=== PATIENT | female | born 1990 | race Caucasian/White ===

== ENCOUNTER 2017-05-25 12:01 | Emergency (ER) | payer BC ==
[2017-05-25 12:08] VITALS: TEMP 98.2
[2017-05-25] MEDS ORDERED: DIAZEPAM 10 MG/2 ML SYR IVP ONE ×2 (12:43→14:57)
[2017-05-25] MEDS ORDERED: ONDANSETRON 4 MG/2 ML VIAL IVP ONE ×3 (13:03→14:57)
[2017-05-25 13:09] LABS: % IMMATURE GRANULYOCYTES 0.4 % (0.0-1.1); ABSOLUTE IMMATURE GRANULOCYTES 0.04 10^3/uL (0.00-0.10); ADD DIFF? NO; ADD MORPH? NO; ADD SCAN? NO; ATYPICAL LYMPHOCYTE FLAG 10 (0-99); FRAGMENT RBC FLAG 0 (0-99); HEMOGLOBIN 16.3 g/dL (12.6-16.3); LEFT SHIFT FLG 0 (0-99); LIPEMIA HEMOLYSIS FLAG 90 (0-99); MEAN CELL HEMOGLOBIN 31.7 pg (27.9-34.1); MEAN CELL HEMOGLOBIN CONCENTR. 35.4 g/dL (32.4-36.7); MEAN CELL VOLUME 89.3 fL (81.5-99.8); MEAN PLATELET VOLUME 9.6 fL (8.7-11.7); PLATELET CLUMPS FLAG 0 (0-99); PLATELET COUNT 232 10^3/uL (150-400); RED BLOOD CELL COUNT 5.15 10^6/uL (4.18-5.33); RED CELL DISTRIBUTION WIDTH 12.4 % (11.5-15.2)
[2017-05-25 13:51] LABS: ANION GAP 12 mEq/L (8-16); CALCIUM 10.1 mg/dL (8.5-10.4); CARBON DIOXIDE 23 mEq/l (22-31); CHLORIDE 104 mEq/L (97-110); CREATININE 0.8 mg/dL (0.6-1.0); GLOMERULAR FILTRATION RATE > 60; GLUCOSE 94 mg/dL (70-100); SODIUM 139 mEq/L (134-144)
[2017-05-25] MEDS ORDERED: DOXYCYCLINE HYCLATE 100 MG CAP/TAB PO ONE (14:22)
[2017-05-25] MEDS ORDERED: metroNIDAZOLE 500 MG TAB PO ONE (14:22)
--- NOTE | 2017-05-25 14:47 | EDPHY ---
H & P Stated Complaint: Sent by [facility] for increased pelvic pain. Time Seen by Provider: 05/25/17 12:26 HPI/ROS: Chief Complaint: Pelvic Pain History of Present Illness: This is a 27 year old female sent from [facility] for increasing pelvic pain. Patient has had pain for the last few days. She went to [facility] today. I did talk with the ROCKET SCIENTIST, Nubia, on the phone who sent her to the ED. At the office she had a pelvic exam. They were unable to located her IUD strings. She had significant cervical motion tenderness and a wet mount with BV. They were concerned for PID and malplacement of the IUD. They are requesting a pelvic ultrasound, starting antibiotics and symptomatic care. In addition to the pelvic pain patient has a long history of dizziness. She describes vertigo like symptoms with things moving around her. She has seen other doctors for the problem and is currently being treated with scopolomine patches. She feels this has worsened and she is having nausea and vomiting with it. She is therefore unable to keep anything down. Review of Systems: A 10 point review of systems was obtained and other then described above was negative. - Personal History LMP (Females 10-55): Irregular Current Tetanus Diphtheria and Acellular Pertussis (TDAP): Yes - Medical/Surgical History Hx Asthma: No Hx Chronic Respiratory Disease: No Hx Diabetes: No Hx Cardiac Disease: Yes Hx Renal Disease: No Hx Cirrhosis: No Hx Alcoholism: No Hx HIV/AIDS: No Hx Splenectomy or Spleen Trauma: No Other PMH: Heart murmer. - Social History Smoking Status: Never smoked Constitutional: Initial Vital Signs Temperature (C) 36.8 C 05/25/17 12:04 Heart Rate 84 05/25/17 12:04 Respiratory Rate 20 05/25/17 12:04 Blood Pressure 116/96 H 05/25/17 12:04 O2 Sat (%) 99 05/25/17 12:04 O2 Delivery Mode Room Air Allergies/Adverse Reactions: No Known Allergies Allergy (Unverified 05/25/17 12:08) Home Medications: Medication Instructions Recorded BENADRYL 05/25/17 Doxycycline Hyclate [Vibramycin 100 mg PO BID 14 Days cap 05/25/17 100 MG (*)] Ondansetron Odt [Zofran Odt 4 mg 4 mg PO Q4 #10 tab 05/25/17 (*)] Scopolamine 05/25/17 metroNIDAZOLE [Flagyl 500 mg (*)] 500 mg PO BID 14 Days tab 05/25/17 Medical Decision Making - Diagnostics Imaging Results: Imaging Impressions Pelvic/Renal Ultrasound 05/25/17 12:28 Impression: 1. Well positioned intrauterine device high within the endometrial cavity. 2. Normal ovaries. No free fluid or evidence of tuboovarian abscess. Findings discussed with Emergency Department physician certified ophthalmic assistant, Miguel Ángel Bobo, on May 25, 2017 at 1451 hours. Imaging: Discussed imaging studies w/ supervisor product inspection Radiologist Procedures: Pelvic exam deferred as patient had one just prior to coming to the ED and I was able to discuss it with her ROCKET SCIENTIST. ED Course/Re-evaluation: Patient discussed with my secondary supervising physician Dr. Winnie Arce. Patient presents primarily to the ED for pelvic pain. She has been evaluated by [facility]. elvic ultrasound unremarkable. She is dizzy, described as a vertigo. SHe is symptomatically treated with improvement in symptoms. She is given a dose of rocephin, and started on oral doxycycline and flagyl.She is able to follow up with [facility] per my discussion with them. The is asked to follow up in 1-2 days. She is further given referral information for a PCP as she is new to [facility]. Home care is discussed. Return precautions are given. Patient voiced understanding and agreement with plan. Differential Diagnosis: Included but not limited to vaginal infections, PID, complications of IUD including uterine perforation, vertigo of multiple etiologies including BPPV an labrynthitis - Data Points Laboratory Results: Laboratory Results 05/25/17 13:00 05/25/17 13:00 05/25/17 05/25/17 05/25/17 13:00 13:00 13:00 WBC 11.03 10^3/uL H 10^3/uL (3.80-9.50) RBC 5.15 10^6/uL 10^6/uL (4.18-5.33) Hgb 16.3 g/dL g/dL (12.6-16.3) Hct 46.0 % % (38.0-47.0) MCV 89.3 fL fL (81.5-99.8) MCH 31.7 pg pg (27.9-34.1) MCHC 35.4 g/dL g/dL (32.4-36.7) RDW 12.4 % % (11.5-15.2) Plt Count 232 10^3/uL 10^3/uL (150-400) MPV 9.6 fL fL (8.7-11.7) Neut % (Auto) 72.4 % % (39.3-74.2) Lymph % (Auto) 19.9 % % (15.0-45.0) Irion % (Auto) 5.9 % % (4.5-13.0) Eos % (Auto) 0.7 % % (0.6-7.6) Baso % (Auto) 0.7 % % (0.3-1.7) Nucleat RBC Rel Count 0.0 % % (0.0-0.2) Absolute Neuts (auto) 7.98 10^3/uL H 10^3/uL (1.70-6.50) Absolute Lymphs (auto) 2.20 10^3/uL 10^3/uL (1.00-3.00) Absolute Monos (auto) 0.65 10^3/uL 10^3/uL (0.30-0.80) Absolute Eos (auto) 0.08 10^3/uL 10^3/uL (0.03-0.40) Absolute Basos (auto) 0.08 10^3/uL 10^3/uL (0.02-0.10) Absolute Nucleated RBC 0.00 10^3/uL 10^3/uL (0-0.01) Immature Gran % 0.4 % % (0.0-1.1) Immature Gran # 0.04 10^3/uL 10^3/uL (0.00-0.10) Sodium 139 mEq/L mEq/L (134-144) Potassium 4.0 mEq/L mEq/L (3.5-5.2) Chloride 104 mEq/L mEq/L (97-110) Carbon Dioxide 23 mEq/l mEq/l (22-31) Anion Gap 12 mEq/L mEq/L (8-16) BUN 10 mg/dL mg/dL (7-23) Creatinine 0.8 mg/dL mg/dL (0.6-1.0) Estimated GFR > 60 Glucose 94 mg/dL mg/dL (70-100) Calcium 10.1 mg/dL mg/dL (8.5-10.4) Beta HCG, Qual NEGATIVE Medications Given: Discontinued Medications Diazepam (Valium Injection) 5 mg IVP EDNOW ONE Stop: 05/25/17 12:44 Last Admin: 05/25/17 13:13 Dose: 5 mg Diazepam (Valium Injection) 5 mg IVP EDNOW ONE Stop: 05/25/17 14:58 Last Admin: 05/25/17 16:46 Dose: Not Given Diphenhydramine HCl (Benadryl Injection) 25 mg IVP EDNOW ONE Stop: 05/25/17 15:36 Last Admin: 05/25/17 15:53 Dose: 25 mg Doxycycline Hyclate (Doxycycline Hyclate) 100 mg PO EDNOW ONE PRN Reason: Protocol Stop: 05/25/17 14:23 Last Admin: 05/25/17 14:51 Dose: 100 mg Haloperidol Lactate (Haldol Injection) 5 mg IVP EDNOW ONE Stop: 05/25/17 15:36 Last Admin: 05/25/17 15:53 Dose: 5 mg Metronidazole (Flagyl) 500 mg PO EDNOW ONE PRN Reason: Protocol Stop: 05/25/17 14:23 Last Admin: 05/25/17 14:50 Dose: 500 mg Ondansetron HCl (Zofran) 4 mg IVP EDNOW ONE Stop: 05/25/17 13:04 Last Admin: 05/25/17 13:13 Dose: 4 mg Ondansetron HCl (Zofran) 4 mg IVP EDNOW ONE Stop: 05/25/17 14:41 Last Admin: 05/25/17 14:50 Dose: 4 mg Ondansetron HCl (Zofran) 4 mg IVP EDNOW ONE Stop: 05/25/17 14:58 Last Admin: 05/25/17 16:46 Dose: Not Given Departure - Departure Disposition: Home, Routine, Self-Care Clinical Impression: PID (pelvic inflammatory disease), Vomiting Condition: Good Instructions: Pelvic Inflammatory Disease (ED), Acute Nausea and Vomiting (ED) Additional Instructions: [facility] with [facility] for continued evaluation and care You should also establish care with a primary care doctor and Ears Nose and Throat doctor Take all antibiotics as prescribed until finished even if feeling better Use Zofran as needed for nausea and vomiting If symptoms worsen or new symptoms develop return to the emergency room for recheck Referrals: [facility],. [Clinic] - As per Instructions Prescriptions: Doxycycline Hyclate [Vibramycin 100 MG (*)] 100 mg PO BID 14 Days cap metroNIDAZOLE [Flagyl 500 mg (*)] 500 mg PO BID 14 Days tab Ondansetron Odt [Zofran Odt 4 mg (*)] 4 mg PO Q4 #10 tab
[2017-05-25] MEDS ORDERED: HALOPERIDOL LACT 5 MG/ML INJ IVP ONE (15:35)
[2017-05-25 16:55] VITALS: BP 104/85; PULSE 82; RESP 18; O2SAT 98
== END 2017-05-25 16:45 | disposition home or self-care (01) ==
DX: N73.9 Female pelvic inflammatory disease, unspecified (principal)
CPT/HCPCS: 96374; J1200; J2405